=== PATIENT | female | born 1990 | race Caucasian/White ===

== ENCOUNTER → 2017-01-16 | Outpatient (CLI) | payer OTHER ==
--- NOTE | 2017-01-16 08:34 | DIAGNOSTIC IMAGING REPORT ---
ULTRASOUND RIGHT UPPER EXTREMITY NONVASCULAR CLINICAL HISTORY: Right arm pain. COMPARISON STUDY: No priors. FINDINGS: Real-time, grayscale, and color flow sonography of the right upper extremity is performed at the indicated site of interest. No sonographic abnormality is identified. There is no mass or fluid collection. No axillary adenopathy is seen. The regional vessels appear patent. IMPRESSION: Unremarkable sonographic assessment of the right upper extremity at the indicated site of interest. Electronically signed by: David Reynaga M.D. 01/16/2017 8:32 AM Dictated Date/Time: 01/16/2017 8:31 AM
== END | disposition home or self-care (01) ==
LOC: C.ULTRBC 08:02
PROVIDERS: ATTEND Surgery
DX: M79.601 Pain in right arm (principal)